=== PATIENT | male | born 1955 | race Caucasian/White ===

== ENCOUNTER 2019-11-18 08:39 | Day surgery (SDC) | payer MEDICARE, BC ==
[~2019-11-18 08:39] MED LIST: Sodium Chloride 0.9% 10 ML Syringe FLUSH PRN
[2019-11-18] MEDS: Lactated Ringers 1,000 ML IV SCH (10:04)
[2019-11-18] MEDS ORDERED: Midazolam 1 MG/ML 2 ML SDV ONE ×2 (11:04→11:07)
[2019-11-18] MEDS ORDERED: Propofol 200 MG/20 ML SDV ONE ×2 (11:04→11:07)
--- NOTE | 2019-11-18 11:05 | PCM.PN ---
- General Info Date of Service: 11/18/19 - Review of Systems Systems Review Comment:: 64-year-old male referred for colonoscopy. Patient states his bowel function has been normal with no recent change. His last colonoscopy was in 2016. This exam appeared normal. The patient was recently diagnosed with chronic leukemia. It is recommended for him to have colonoscopy periodically because of this diagnosis. I have discussed the proposed colonoscopy with the patient. He agrees to proceed excepting risks. His recent history and physical is reviewed and no significant changes are noted. - Patient Data Vitals - Most Recent: Last Vital Signs Temp 98.2 F 11/18/19 09:41 Pulse 66 11/18/19 09:41 Resp 20 11/18/19 09:41 BP 141/82 H 11/18/19 09:41 Pulse Ox 98 11/18/19 09:41 Weight - Most Recent: 104.326 kg Med Orders - Current: Current Medications Lactated Ringer's (Ringers, Lactated) 1,000 mls @ 999 mls/hr IV .BOLUS KATRIN Last Admin: 11/18/19 10:04 Dose: 999 mls/hr Documented by: Sodium Chloride (Saline Flush) 10 ml FLUSH ASDIRECTED PRN PRN Reason: Keep Vein Open Sepsis Event Note - Focused Exam Vital Signs: Vital Signs Temp Pulse Resp BP Pulse Ox 11/18/19 09:41 98.2 F 66 20 141/82 H 98 - Problem List Review Problem List Initiated/Reviewed/Updated: Yes - Assessment Assessment:: Colon cancer screening with history of leukemia - Plan Plan:: Colonoscopy
--- NOTE | 2019-11-18 11:44 | PCM.OPNOTE ---
- General Post-Op/Procedure Note Date of Surgery/Procedure: 11/18/19 Operative Procedure(s): Colonoscopy with polypectomy Findings: 2 small transverse colon polyps Colon otherwise normal Pre Op Diagnosis: Colon cancer screening Post-Op Diagnosis: Colon polyps Anesthesia Technique: MAC Primary Surgeon: Sukhwinder Rich Pathology: Colon polyps EBL in mLs: 0 Complications: None Condition: Good
[2019-11-18 13:16] VITALS: BP 122/84; PULSE 57
--- NOTE | 2019-11-18 16:42 | OR ---
Date of Procedure: 11/18/2019 PREOPERATIVE DIAGNOSIS: Colon cancer screening. POSTOPERATIVE DIAGNOSIS: Colon polyps. OPERATIONS PERFORMED: Colonoscopy with polypectomy. INDICATIONS FOR SURGERY: This 64-year-old male is here for screening colonoscopy. He was recently diagnosed with chronic leukemia. FINDINGS: Two small polyps were noted in the transverse colon. These were each 5 to 6 mm in size and sessile in configuration. The remainder of the colon and rectum appeared normal. DESCRIPTION OF PROCEDURE: The patient was taken to the operating room. He was given intravenous sedation, and with him in the left lateral decubitus position, digital rectal exam was performed showing no rectal masses. The Olympus colonoscope was inserted into the rectum. Retroflexed examination of the rectal canal was performed. The scope was carefully advanced under direct visualization through the entire length of the colon until the cecum was reached. Cecal acquisition was confirmed by noting the normal internal cecal anatomy including the appendiceal orifice and the ileocecal valve. The light was also noted to transilluminate the abdominal wall in the right lower quadrant. During insertion of the scope, the above-described polyps were identified. These were each removed with cautery snare and retrieved. After examining the cecum, the scope was slowly withdrawn sequentially re-examining the colonic segments until the entire colon and rectum had been fully examined. The scope was removed and the patient was taken from the operating room in satisfactory condition. ESTIMATED BLOOD LOSS: Zero. COMPLICATIONS: None. PROGNOSIS: Good. KRYSTEN Rich MD /[id number]
== END 2019-11-18 12:56 | disposition home or self-care (01) ==
LOC: LL.SDS 08:39
PROVIDERS: ATTEND Surgery
DX: D12.3 Benign neoplasm of transverse colon (principal); I10 Essential (primary) hypertension; R53.83 Other fatigue; R06.02 Shortness of breath; C95.10 Chronic leukemia of unspecified cell type not having achieved remission; Z87.891 Personal history of nicotine dependence
CPT/HCPCS: 00812; 88305; 93010; 99213; J2250; J2704; J7120

== ENCOUNTER 2022-07-18 08:33 | Day surgery (SDC) | payer MEDICARE, BC ==
[~2022-07-18 08:33] MED LIST changes: +Midazolam 1 MG/ML 2 ML SDV ONE; +Propofol 200 MG/20 ML SDV ONE; -Sodium Chloride 0.9% 10 ML Syringe FLUSH PRN
[2022-07-18] MEDS ORDERED: Lactated Ringers 1,000 ML IV SCH ×2 (09:00→10:00)
[2022-07-18] MEDS ORDERED: Sodium Chloride 0.9% 10 ML Syringe FLUSH PRN ×2 (09:00→10:00)
[2022-07-18 11:39] VITALS: BP 124/73; PULSE 64
== END 2022-07-18 11:20 | disposition home or self-care (01) ==
LOC: LL.SDS 08:33
PROVIDERS: ATTEND Surgery
DX: Z12.11 Encounter for screening for malignant neoplasm of colon (principal); K57.30 Diverticulosis of large intestine without perforation or abscess without bleeding; E11.9 Type 2 diabetes mellitus without complications; E78.5 Hyperlipidemia, unspecified; C91.10 Chronic lymphocytic leukemia of B-cell type not having achieved remission; Z86.010 Personal history of colon polyps; Z80.0 Family history of malignant neoplasm of digestive organs; Z90.09 Acquired absence of other part of head and neck; Z96.653 Presence of artificial knee joint, bilateral; Z79.899 Other long term (current) drug therapy
CPT/HCPCS: 00812; J2250; J2704; J7120

== ENCOUNTER 2023-04-26 20:37 | Emergency (ER) | payer OTHER, MEDICARE, BC ==
[2023-04-26] MEDS ORDERED: Sodium Chloride 0.9% 10 ML Syringe FLUSH PRN (20:43)
[2023-04-26 20:49] LABS: BASOPHILS ABSOLUTE AUTO 0.04 K/uL (0.00-0.20); BASOPHILS PERCENT AUTO 0.2 % (0.0-2.0); EOSINOPHILS ABSOLUTE AUTO 0.22 K/uL (0.00-0.50); EOSINOPHILS PERCENT AUTO 1.1 % (0.0-5.0); HEMATOCRIT 44.9 % (39.0-49.0); HEMOGLOBIN 15.2 g/dL (13.1-16.8); LYMPHOCYTES ABSOLUTE AUTO 12.75 K/uL (0.50-3.50); LYMPHOCYTES PERCENT AUTO 66.2 % (10.0-50.0); MEAN CORPUSCULAR HEMOGLOBIN 29.8 pg (28.2-33.3); MEAN CORPUSCULAR HGB CONC 33.9 g/dL (31.7-36.0); MONOCYTES PERCENT AUTO 4.2 % (2.0-14.0); NEUTROPHILS ABSOLUTE AUTO 5.45 K/uL (1.40-7.00); NEUTROPHILS PERCENT AUTO 28.3 % (45.0-80.0); PLATELET COUNT,PLT 213 K/uL (150-350); RED CELL DISTRIBUTION WIDTH 14.4 % (11.2-14.1); WHITE BLOOD CELL COUNT,WBC 19.3 K/uL (4.0-10.2)
[2023-04-26 21:06] LABS: ALANINE AMINOTRANSFERASE,ALT 32 U/L (12-78); ALBUMIN 3.8 g/dL (3.4-5.0); ALKALINE PHOSPHATASE 74 IU/L (46-116); ASPARTATE AMNIOTRANSFERASE,AST 14 U/L (15-37); BILIRUBIN TOTAL 0.4 mg/dL (0.2-1.0); BLOOD UREA NITROGEN,BUN 19 mg/dL (7-18); CALCIUM 8.7 mg/dL (8.5-10.1); CHLORIDE,CL 106 mmol/L (98-107); CREATININE 1.21 mg/dL (0.51-1.17); GLUCOSE RANDOM 118 mg/dL (70-99); POTASSIUM,K 3.8 mmol/L (3.5-5.1); PROTEIN TOTAL,TP 7.1 g/dL (6.4-8.2); SEDIMENTATION RATE AUTO 11 mm/hr (0-20); SODIUM,NA 141 mmol/L (136-145)
[2023-04-26 21:07] LABS: ESTIMATED GFR 65 mL/min (>=60)
[2023-04-26 21:12] LABS: PROTHROMBIN TIME 9.9 SEC (9.0-11.1)
[2023-04-26] MEDS ORDERED: Sodium Chloride 0.9% 1,000 ML IV SCH (21:15)
[2023-04-26] MEDS ORDERED: Clopidogrel 75 MG Tab ONE ×2 (22:15→22:22)
[2023-04-26] MEDS: Aspirin 325 MG Tab PO ONE (22:20)
[2023-04-26] MEDS: Clopidogrel 75 MG Tab PO ONE (22:20)
[2023-04-26] MEDS ORDERED: Aspirin 325 MG Tab.EC ONE (22:27)
== END 2023-04-26 22:55 ==
LOC: LL.ED 20:37
DX: R29.810 Facial weakness (principal); E78.00 Pure hypercholesterolemia, unspecified; Z79.899 Other long term (current) drug therapy; Z88.8 Allergy status to other drugs, medicaments and biological substances; Z91.048 Other nonmedicinal substance allergy status
CPT/HCPCS: 36415; 70450; 80053; 82947; 83605; 83735; 84484; 85025; 85610; 85652; 85730; 93005; 93010; 99284; 99285; A9270-GY